=== PATIENT | male | born 1980 | race African-American/Black ===

== ENCOUNTER 2024-05-19 04:24 | Emergency (ER) | payer OTHER ==
[2024-05-19 04:33] VITALS: BP 128/82; PULSE 58; RESP 20; TEMP 98.2; BMI 23.1
[2024-05-19] MEDS ORDERED: LIDOCAINE 4% PATCH TP ONE (05:17)
[2024-05-19] MEDS ORDERED: IBUPROFEN 600 MG TABLET (FP) PO ONE (05:18)
[2024-05-19] MEDS: LIDOCAINE 4% PATCH TP ONE (05:22)
[2024-05-19] MEDS: IBUPROFEN 600 MG TABLET (FP) PO ONE (05:22)
[2024-05-19] MEDS: LIDOCAINE PATCH REMOVAL MC SCH (05:23)
== END 2024-05-19 06:13 | disposition home or self-care (01) ==
LOC: JER 04:24
DX: M54.9 Dorsalgia, unspecified (principal); M79.10 Myalgia, unspecified site
CPT/HCPCS: 99283-25

== ENCOUNTER 2024-09-01 10:54 | Emergency (ER) | payer BC, OTHER ==
[2024-09-01 11:06] VITALS: BP 131/86; PULSE 104; RESP 16; TEMP 98.3; BMI 22.4
[2024-09-01] MEDS ORDERED: KETOROLAC TROMETHAMINE 30 MG/1 ML VIAL ONE (12:10)
[2024-09-01] MEDS ORDERED: LIDOCAINE 4% PATCH TP ONE (12:10)
[2024-09-01] MEDS ORDERED: ACETAMINOPHEN 500 MG TABLET (FP) ONE (12:11)
[2024-09-01] MEDS: KETOROLAC TROMETHAMINE 30 MG/1 ML VIAL IM ONE (12:17)
[2024-09-01] MEDS: LIDOCAINE 4% PATCH TP ONE (12:18)
[2024-09-01] MEDS: ACETAMINOPHEN 500 MG TABLET (FP) PO ONE (12:18)
[2024-09-01] MEDS ORDERED: LIDOCAINE PATCH REMOVAL MC SCH (22:00)
== END 2024-09-01 12:18 | disposition home or self-care (01) ==
LOC: JERFT 10:54
PROC: 3E0133Z Introduction of Anti-inflammatory into Subcutaneous Tissue, Percutaneous Approach (ICD-10-PCS; principal; 2024-09-01)
DX: M54.50 Low back pain, unspecified (principal); W10.8XXA Fall (on) (from) other stairs and steps, initial encounter
CPT/HCPCS: 99284-25